=== PATIENT | male | born 1985 | race Caucasian/White ===

== ENCOUNTER 2016-12-04 15:20 | Emergency (ER) | payer OTHER ==
[~2016-12-04] VITALS: Ht 170.2 cm; Wt 83.9 kg
--- NOTE | 2016-12-04 15:29 | Emergency Room Report ---
History of Present Illness General Chief Complaint: Lower Extremity Injury Source: Patient, EMS Present Illness HPI The patient presents with back pain via EMS. He bent over and pain became intense in his back. He lay on the floor for an hour and a half. Does/did not take any medication for this. Denies any fevers, saddle numbness, incontinence or difficulty moving his bowels. The pain is 9-10/10, constant and worse when he moves, aching spasms, not radiate to legs, but feels radiates to upper back. In the past he's had episodes which were fleeting. However this time is more lasting and more severe. He's never had x-rays of his low back. No known trauma in the past. Patient also states that he is recovering addict. No chest pain, rashes, NVD, headache. 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 Nursing Documentation: PMH: Agreed, PSxH: Agreed Nursing Documentation-PM Past Medical History: No History, Except For Review of Systems All Other Systems: negative except mentioned in HPI Physical Exam Vital Signs Date Time Temp Pulse Resp B/P Pulse Ox O2 Delivery O2 Flow Rate FiO2 12/04/16 15:15 99.0 70 16 141/78 99 Room Air Sp02 EP Interpretation: reviewed, normal General Appearance: well appearing, no apparent distress, GCS 15 Head: normocephalic Eyes: bilateral eye PERRL, bilateral eye normal inspection ENT: moist mucus membranes Neck: supple Respiratory: lungs clear, normal breath sounds Cardiovascular #1: regular rate, rhythm Cardiovascular #2: 2+ radial (R) Gastrointestinal: normal inspection, normal bowel sounds, non tender, no mass, non-distended Musculoskeletal: digits/nails normal, no calf tenderness, other - spasms of lower back, no bone pain Neurologic: alert, oriented x3, motor strength/tone normal, DTRs symmetric, sensory intact, speech normal Psychiatric: mood/affect normal Skin: normal inspection, warm/dry Medical Decision Making Diagnostic Impression: Primary Impression: Low back strain Qualified Codes: S39.012A - Strain of muscle, fascia and tendon of lower back , initial encounter ER Course The patient presents with severe back pain. Differential includes spasm, strain , disc. He has no red flag symptoms. He'll be receiving a shot of Toradol and also Flexeril. We'll be obtaining x-ray films because the pain is severe. Xrays unremarkable. Better but still with pain. Has pain when flexes neck. Percocet ordered. Improved. Patient stable for outpatient observation and treatment. Other X-Ray Diagnostic Results Other X-Ray Diagnostic Results : # of Views/Limited Vs Complete: 3 View Indication: Pain EP Interpretation: Yes Interpretation: no dislocation, no soft tissue swelling, no fractures Impression: No acute disease Interpreting ER Provider: Electronically signed by Lázaro Borges MD Last Vital Signs Date Time Temp Pulse Resp B/P Pulse Ox O2 Delivery O2 Flow Rate FiO2 12/04/16 17:25 99.0 16 141/78 99 Room Air 12/04/16 15:15 70 Status: improved Disposition: HOME, SELF-CARE Condition: Improved Scripts Methocarbamol* (ROBAXIN*) 500 Mg Tablet 500 MG PO TID, #12 TAB 0 Refills Prov: Lázaro Borges M.D. 12/04/16 Oxycodone/Acetaminophen 5-325* (PERCOCET 5-325 MG TABLET*) 1 Each Tablet 1 TAB ORAL Q6H Y for For Pain, #10 TAB Prov: Lázaro Borges M.D. 12/04/16 Ibuprofen* (MOTRIN*) 600 Mg Tablet 600 MG ORAL Q6H Y for For Pain, #20 TAB Prov: Lázaro Borges M.D. 12/04/16 Lázaro Borges M.D. Dec 04, 2016 15:29
[2016-12-04] MEDS ORDERED: Ketorolac 60mg Inj IM ONE (15:30)
[2016-12-04] MEDS ORDERED: Cyclobenzaprine 10mg Tab ORAL ONE (15:30)
--- NOTE | 2016-12-04 16:14 | Diagnostic Imaging Report ---
Indication: Back pain Comparison: None Findings: 3 views of the lumbar spine were obtained. No acute fracture or malalignment is identified. Vertebral body heights and disk spaces are well maintained. Posterior elements are unremarkable. Impression: No acute findings.
[2016-12-04] MEDS ORDERED: ROBAXIN500 MG PO (17:14)
[2016-12-04] MEDS ORDERED: PERCOCET 5-3251 EACH ORAL (17:14)
[2016-12-04] MEDS ORDERED: IBUPROFEN600 MG ORAL (17:14)
[2016-12-04] MEDS ORDERED: Oxycodone/Acetaminophen 5-325 ORAL ONE (17:15)
[2016-12-04 17:25] VITALS: BP 141/78
== END 2016-12-04 17:35 | disposition home or self-care (01) ==
LOC: EDBD 15:20 → EMR 16:39
DX: S39.012A Strain of muscle, fascia and tendon of lower back, initial encounter (principal); X58.XXXA Exposure to other specified factors, initial encounter; Y92.9 Unspecified place or not applicable
CPT/HCPCS: 72020; 96372; 99284

== ENCOUNTER 2017-11-12 12:17 | Emergency (ER) | payer OTHER ==
[~2017-11-12] VITALS: Ht 170.2 cm; Wt 90.7 kg
[~2017-11-12 12:17] MED LIST: IBUPROFEN600 MG ORAL; PERCOCET 5-3251 EACH ORAL; ROBAXIN500 MG PO
[2017-11-12] MEDS ORDERED: LEXAPRO10 MG ORAL (12:38)
[2017-11-12] MEDS ORDERED: ROXICODONE15 MG ORAL (12:38)
[2017-11-12] MEDS ORDERED: Methocarbamol 500mg tab ORAL ONE (13:00)
[2017-11-12] MEDS ORDERED: Dicyclomine HCl 10mg/5ml oral soln ORAL ONE (13:00)
--- NOTE | 2017-11-12 13:01 | Emergency Room Report ---
History of Present Illness General Chief Complaint: Overdose Source: Patient Present Illness HPI 32-year-old male presents to the emergency department complaining of 8 out of 10 in severity body aches, abdominal cramping, diarrhea, nausea vomiting, and diaphoresis. Patient reports that he is experiencing opiate withdrawal symptoms. Patient states that he took 120 mg at approximately 10 AM this morning began having his symptoms approximately one hour ago. Since states that he was previously 10 years sober and he relapsed recently about a month and half ago and was taking about 360 mg OxyContin daily. Patient denies previous history of alcohol use, cocaine use and meth use. Patient rates that he has no other medical problems besides depression and anxiety. Currently prescribed Lexapro and Xanax. Denies fevers or chills denies recent travel. denies blood in the vomit or stool. Denies chest pain, palpitations or sudden severe headache. No history of liver disease, renal disease or seizures. Denies IV drug use reports oral intake only denies smoking. Allergies: Coded Allergies: No Known Allergies (Unverified , 12/04/16) Patient History Past Medical History: see triage record Past Surgical History: none Pertinent Family History: none Social History: Reports: drug use - ETOH, Cocaine, Meth, Opiates. Reviewed Nursing Documentation: PMH: Agreed; PSxH: Agreed Nursing Documentation-PMH Past Medical History: No History, Except For Review of Systems All Other Systems: negative except mentioned in HPI Physical Exam Vital Signs Date Time Temp Pulse Resp B/P (MAP) Pulse Ox O2 Delivery O2 Flow Rate FiO2 11/12/17 12:29 98.2 77 18 143/87 95 Room Air 98.2 Sp02 EP Interpretation: reviewed, normal General Appearance: alert, GCS 15, non-toxic, mild distress Head: normocephalic, atraumatic Eyes: bilateral eye normal inspection, bilateral eye PERRL ENT: hearing grossly normal, normal voice Neck: full range of motion Respiratory: lungs clear, normal breath sounds, no wheezing, speaking full sentences Cardiovascular #1: regular rate, rhythm Gastrointestinal: normal bowel sounds - hyperactive BS, non tender, soft Musculoskeletal: back normal, gait/station normal, normal range of motion, non- tender Neurologic: alert, oriented x3, responsive, motor strength/tone normal, sensory intact, speech normal, grossly normal Psychiatric: judgement/insight normal Skin: normal color, no rash, warm/dry, well hydrated Lymphatic: no adenopathy Medical Decision Making PA Attestation Dr. Carlson is my supervising Physician whom patient management has been discussed with. Diagnostic Impression: Primary Impression: Opiate withdrawal Additional Impression: History of drug dependence/abuse ER Course 32-year-old male presents to the emergency department complaining of 8 out of 10 in severity body aches, abdominal cramping, diarrhea, nausea vomiting, and diaphoresis. Patient reports that he is experiencing opiate withdrawal symptoms. Patient states that he took 120 mg at approximately 10 AM this morning began having his symptoms approximately one hour ago. Since states that he was previously 10 years sober and he relapsed recently about a month and half ago and was taking about 360 mg OxyContin daily. Patient denies previous history of alcohol use, cocaine use and meth use. Patient rates that he has no other medical problems besides depression and anxiety. Currently prescribed Lexapro and Xanax. Denies fevers or chills denies recent travel. denies blood in the vomit or stool. Denies chest pain, palpitations or sudden severe headache. No history of liver disease, renal disease or seizures. Denies IV drug use reports oral intake only denies smoking. Ddx considered but are not limited to dehydration, speech were depression, dehydration, upper or lower GI bleed, , withdraw seizures, hypertensive urgency just to name a few Vital signs: are WNL, pt. is afebrile H&PE are most consistent with Opiate withdrawal symptoms non-complicated, no evidence of acute dehydration, GI bleed or acute abdomen. ORDERS: none required at this time, the diagnosis is clinical ED INTERVENTIONS: -Robaxin PO -Tylenol PO -Bentyl PO Will re-assess and d/w d/c to home or to detox facility. is bedside and is included in the decision-making process. DISCHARGE: At this time pt. is stable for d/c to home. Will provide printed patient care instructions, and any necessary prescriptions. Care plan and follow up instructions have been discussed with the patient prior to discharge. Last Vital Signs Date Time Temp Pulse Resp B/P (MAP) Pulse Ox O2 Delivery O2 Flow Rate FiO2 11/12/17 12:29 98.2 77 18 143/87 95 Room Air 98.2 Disposition: HOME, SELF-CARE - with + family Condition: Stable Patient Instructions: Finding Treatment for Addiction Additional Instructions: Take medications as directed. Follow up with a Primary Care Provider in 3-5 days, even if your symptoms have resolved. --Please review list of primary care clinics, if you do not already have a primary care provider Return sooner to ED if new symptoms occur, or current symptoms become worse. - Please note that this Emergency Department Report was dictated using [employer] loader machine operator technology software, occasionally this can lead to erroneous entry secondary to interpretation by the dictation equipment. Nori Arroyo Nov 12, 2017 13:01
[2017-11-12 13:38] VITALS: BP 143/87
[2017-11-12] MEDS ORDERED: CATAPRES0.1 MG ORAL (14:30)
[2017-11-12] MEDS ORDERED: DICYCLOMINE HCL10 MG PO (14:30)
[2017-11-12] MEDS ORDERED: LIDODERM700 M1 TOPIC (14:30)
[2017-11-12] MEDS ORDERED: ROBAXIN500 MG PO (14:30)
[2017-11-12] MEDS ORDERED: ZOFRAN ODT8 MG ORAL (14:30)
[2017-11-12 15:12] VITALS: BP 143/87
== END 2017-11-12 15:12 | disposition home or self-care (01) ==
LOC: EMR 13:12
DX: F11.23 Opioid dependence with withdrawal (principal); F32.9 Major depressive disorder, single episode, unspecified; F41.9 Anxiety disorder, unspecified
CPT/HCPCS: 99283